=== PATIENT | male | born 1965 | race Caucasian/White ===

== ENCOUNTER 2024-11-15 19:33 | Emergency (ER) | payer SELFPAY ==
[2024-11-15 19:35] VITALS: BP 154/101
[2024-11-15 19:37] VITALS: BP 146/93
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
== END 2024-11-16 00:52 | disposition home or self-care (01) ==
LOC: EMR 19:33
PROVIDERS: EMERGENCY PHYSICIAN Emergency Medicine; FAMILY PHYSICIAN Family Medicine
DX: R51.9 Headache, unspecified (principal); M54.2 Cervicalgia; V49.40XA Driver injured in collision with unspecified motor vehicles in traffic accident, initial encounter; K21.9 Gastro-esophageal reflux disease without esophagitis
CPT/HCPCS: 99284; 70450; 72125

== ENCOUNTER → 2024-11-17 10:35 | Outpatient (REF) | payer OTHER, SELFPAY | LOC: RAD 10:35 | PROVIDERS: ATTENDING PHYSICIAN Family Medicine; FAMILY PHYSICIAN Family Medicine | DX: S29.012A Strain of muscle and tendon of back wall of thorax, initial encounter (principal) | CPT/HCPCS: 72072 ==

== ENCOUNTER → 2024-12-22 17:38 | Outpatient (REF) | payer OTHER, BC, SELFPAY | LOC: MRI 17:38 | PROVIDERS: ATTENDING PHYSICIAN Family Medicine; FAMILY PHYSICIAN Family Medicine | DX: G44.309 Post-traumatic headache, unspecified, not intractable (principal); M50.30 Other cervical disc degeneration, unspecified cervical region; G44.86 Cervicogenic headache | CPT/HCPCS: 70553; 72141; 72146; A9575 ==

== ENCOUNTER 2025-02-09 07:24 | Outpatient (RCR) | payer OTHER, SELFPAY | END 2025-02-09 23:59 | disposition home or self-care (01) | LOC: RPT 07:24 | PROVIDERS: ATTENDING PHYSICIAN Pain Medicine Interventional Pain Medicine; FAMILY PHYSICIAN Family Medicine | DX: M54.12 Radiculopathy, cervical region (principal); M54.14 Radiculopathy, thoracic region; Z73.6 Limitation of activities due to disability; M62.81 Muscle weakness (generalized); R51.9 Headache, unspecified; R42 Dizziness and giddiness; R41.3 Other amnesia; M79.602 Pain in left arm; V59 Occupant of pick-up truck or van injured in other and unspecified transport accidents; Y93.89 Activity, other specified; Y92.89 Other specified places as the place of occurrence of the external cause; Y99.0 Civilian activity done for income or pay | CPT/HCPCS: 97110; 97140; 97162 ==

== ENCOUNTER 2025-03-08 07:51 | Outpatient (RCR) | payer OTHER, SELFPAY | END 2025-03-10 23:59 | disposition home or self-care (01) | LOC: RPT 07:51 | PROVIDERS: ATTENDING PHYSICIAN Pain Medicine Interventional Pain Medicine; FAMILY PHYSICIAN Family Medicine | DX: M54.12 Radiculopathy, cervical region (principal); M54.14 Radiculopathy, thoracic region; Z73.6 Limitation of activities due to disability; M62.81 Muscle weakness (generalized); M79.602 Pain in left arm; V59 Occupant of pick-up truck or van injured in other and unspecified transport accidents; Y93.89 Activity, other specified; Y92.410 Unspecified street and highway as the place of occurrence of the external cause; Y99.0 Civilian activity done for income or pay | CPT/HCPCS: 97110; 97140 ==

== ENCOUNTER 2025-04-11 07:51 | Outpatient (RCR) | payer OTHER, SELFPAY | END 2025-04-11 23:59 | disposition home or self-care (01) | LOC: RPT 07:51 | PROVIDERS: ATTENDING PHYSICIAN Pain Medicine Interventional Pain Medicine; FAMILY PHYSICIAN Family Medicine | DX: M54.12 Radiculopathy, cervical region (principal); M54.14 Radiculopathy, thoracic region; Z73.6 Limitation of activities due to disability; M62.81 Muscle weakness (generalized); M79.602 Pain in left arm; V59 Occupant of pick-up truck or van injured in other and unspecified transport accidents; Y93.89 Activity, other specified; Y92.410 Unspecified street and highway as the place of occurrence of the external cause; Y99.0 Civilian activity done for income or pay | CPT/HCPCS: 97110 ==

== ENCOUNTER → 2025-04-26 10:03 | Outpatient (REF) | payer BC, SELFPAY | LOC: HWRAD 10:03 | PROVIDERS: ATTENDING PHYSICIAN Family Medicine | DX: R91.1 Solitary pulmonary nodule (principal) | CPT/HCPCS: 71250 ==

== ENCOUNTER 2025-05-11 07:07 | Outpatient (RCR) | payer OTHER, SELFPAY | END 2025-05-11 23:59 | disposition home or self-care (01) | LOC: RPT 07:07 | PROVIDERS: ATTENDING PHYSICIAN Pain Medicine Interventional Pain Medicine; FAMILY PHYSICIAN Family Medicine | DX: M54.12 Radiculopathy, cervical region (principal); M54.14 Radiculopathy, thoracic region; Z73.6 Limitation of activities due to disability; M62.81 Muscle weakness (generalized); M79.602 Pain in left arm; V59 Occupant of pick-up truck or van injured in other and unspecified transport accidents; Y93.89 Activity, other specified; Y92.410 Unspecified street and highway as the place of occurrence of the external cause; Y99.0 Civilian activity done for income or pay | CPT/HCPCS: 97110 ==

== ENCOUNTER → 2025-05-19 07:26 | Outpatient (REF) | payer BC, SELFPAY | LOC: RAD 07:26 | PROVIDERS: ATTENDING PHYSICIAN Family Medicine | DX: R19.8 Other specified symptoms and signs involving the digestive system and abdomen (principal) | CPT/HCPCS: 76700 ==

== ENCOUNTER 2025-06-08 14:15 | Outpatient (RCR) | payer OTHER, SELFPAY | END 2025-06-08 23:59 | disposition home or self-care (01) | LOC: RPT 14:15 | PROVIDERS: ATTENDING PHYSICIAN Pain Medicine Interventional Pain Medicine; FAMILY PHYSICIAN Family Medicine | DX: M54.12 Radiculopathy, cervical region (principal); M54.14 Radiculopathy, thoracic region; Z73.6 Limitation of activities due to disability; M62.81 Muscle weakness (generalized); M79.602 Pain in left arm; V59 Occupant of pick-up truck or van injured in other and unspecified transport accidents; Y93.89 Activity, other specified; Y92.410 Unspecified street and highway as the place of occurrence of the external cause; Y99.0 Civilian activity done for income or pay | CPT/HCPCS: 97110 ==